=== PATIENT | female | born 1990 | race Hispanic/Latino ===

== ENCOUNTER 2017-08-01 04:34 | Emergency (ER) | payer OTHER ==
[2017-08-01] MEDS ORDERED: Sodium Chloride 0.9% 1,000 ML IV STA ×2 (04:54→06:38)
--- NOTE | 2017-08-01 04:58 | ED PDOC ---
HPI: Abdomen History Per: Patient History/Exam Limitations: no limitations Onset/Duration Of Symptoms: Hrs Outside of [place] travel?: No Current Symptoms Are (Timing): Still Present Context: Food Location Of Pain/Discomfort: Epigastric, Suprapubic Quality Of Discomfort: Cramping Associated Symptoms: Nausea, Vomiting. denies: Fever, Chills, Diarrhea Additional Complaint(s): No PMHx presenting with nausea and vomiting since 7PM yesterday, patient states that day old blueberries may have been causative agent, states she's vomited "handful of times" without blood or bile, no abnormal BM's, no fevers. States she's having cramping in abdomen radiating from suprapubic region to epigastrium. States she feels thirsty. No recent travel, sick contacts, abdominal surgeries, or recent ABx usage. Past Medical History Reviewed: Historical Data, Nursing Documentation, Vital Signs Vital Signs: Last Vital Signs Temp 98.4 F 08/01/17 04:41 Pulse 111 H 08/01/17 06:25 Resp 18 08/01/17 06:25 BP 116/81 08/01/17 04:41 Pulse Ox 99 08/01/17 06:25 - Medical History PMH: Depression - Surgical History Surgical History: No Surg Hx - Family History Family History: States: Unknown Family Hx - Home Medications Home Medications: Ambulatory Orders Medication Instructions Recorded No Known Home Med 04/11/16 - Allergies Allergies/Adverse Reactions: Allergies Allergy/AdvReac Type Severity Reaction Status Date / Time metoclopramide HCl AdvReac FEVER Verified 04/11/16 01:49 [From [facility]] Review of Systems ROS Statement: Except As Marked, All Systems Reviewed And Found Negative Gastrointestinal: Positive for: Nausea, Vomiting, Abdominal Pain. Negative for : Diarrhea Physical Exam - Reviewed Nursing Documentation Reviewed: Yes Vital Signs Reviewed: Yes - Physical Exam Appears: Positive for: Well, Non-toxic, No Acute Distress Head Exam: Positive for: ATRAUMATIC, NORMAL INSPECTION, NORMOCEPHALIC Skin: Positive for: Normal Color, Warm, DRY Eye Exam: Positive for: EOMI, Normal appearance, PERRL ENT: Positive for: Normal ENT Inspection Neck: Positive for: Normal, Painless ROM Cardiovascular/Chest: Positive for: Regular Rate, Rhythm Respiratory: Positive for: CNT, Normal Breath Sounds Gastrointestinal/Abdominal: Positive for: Normal Exam, Bowel Sounds, Soft, Tenderness (mild tenderness in suprapubic and epigastric regions, no RLQ tenderness). Negative for: Organomegaly, Mass, Distended, Guarding, Rebound Back: Positive for: Normal Inspection Extremity: Positive for: Normal ROM Neurologic/Psych: Positive for: Alert, Oriented - Laboratory Results Result Diagrams: 08/01/17 05:00 08/01/17 05:00 - ECG O2 Sat by Pulse Oximetry: 97 Pulse Ox Interpretation: Normal Medical Decision Making Medical Decision MakinAM A/P: No PMHx presenting with nausea, vomiting, abdominal pain -presentation is consistent with viral gastroenteritis -very unlikely appendicitis, colitis, diverticulitis based on exam and history -likely dehyrated, will give 1LNS -pepcid for pain relief -will check labs and re-eval after workup 7AM -Patient still tachycardic, 2nd liter of fluid ordered -Patient still complaining of suprapubic pain, now with headache, toradol ordered -Will endorse to Dr. Nunes pending re-eval, if patient still having pain, will advise CT A/P Disposition - Clinical Impression Clinical Impression: Abdominal pain in female - Disposition Disposition: Transfer of Care Disposition Time: 07:00 Condition: STABLE Patient Signed Over To: Constantin Nunes Handoff Comments: pending re-eval for possible CT
[2017-08-01 05:23] LABS: BASO % 0.2 % (0.0-2.0); EOS % 0.8 % (0.0-4.0); HEMOGLOBIN 13.4 g/dL (12.0-16.0); LYMPH # 0.4 K/uL (1.0-4.3); LYMPH % 8.6 % (20.0-40.0); MEAN CELL VOLUME 86.3 fl (81.0-99.0); MEAN CORPUSCULAR HEMOGLOBIN 29.5 pg (27.0-31.0); MEAN CORPUSCULAR HGB CONC 34.2 g/dL (33.0-37.0); MONO # 0.3 K/uL (0.0-0.8); MONO % 6.1 % (0.0-10.0); NEUT % 84.3 % (50.0-75.0); NRBC % 0.1 % (0.0-0.0); PLATELET COUNT 174 K/uL (130-400); RBC 4.56 Mil/uL (3.80-5.20); RED CELL DISTRIBUTION WIDTH 12.9 % (11.5-14.5); WHITE BLOOD COUNT 4.7 K/uL (4.8-10.8)
[2017-08-01 05:52] LABS: ALB/GLOB RATIO 1.4 (1.0-2.1); ALBUMIN 4.1 g/dL (3.5-5.0); ALT/SGPT 36 U/L (9-52); AST/SGOT 31 U/L (14-36); BLOOD UREA NITROGEN 16 mg/dl (7-17); CALCIUM 9.3 mg/dL (8.4-10.2); GFR AFRICAN-AMERICAN > 60; GFR NON-AFRICAN AMERICAN > 60
--- NOTE | 2017-08-01 06:59 | ED PDOC ---
- Laboratory Results Result Diagrams: 08/01/17 05:00 08/01/17 05:00 - ECG O2 Sat by Pulse Oximetry: 97 (RA) Pulse Ox Interpretation: Normal - Progress ED Course And Treament: Pt reports mild nausea and headache. On physical exam, (+) mild tenderness LUQ. Work up with Transvaginal Ultrasound to r/o cyst. Re-evaluation Time: :46 Condition: Re-examined, Improved Medical Decision Making Medical Decision Making: Patient signed out to me by Dr. Olea @ 07:00, pending re-evaluation for possible CT A/P. Declines CT abd would rather have US Time: 08:13 Transvaginal Ultrasound 09:30 As per RN, Pt reports she has a headache and feels nauseous Scribe Attestation: Documented by Varun Mazariegos, acting as a scribe for Constantin Nunes MD Provider Scribe Attestation: All medical record entries made by the Scribe were at my direction and personally dictated by me. I have reviewed the chart and agree that the record accurately reflects my personal performance of the history, physical exam, medical decision making, and the department course for this patient. I have also personally directed, reviewed, and agree with the discharge instructions and disposition. Disposition - Clinical Impression Clinical Impression: Abdominal pain in female, Ovarian cyst - POA Present On Arrival: None - Disposition [facility] Disposition: Routine/Home Disposition Time: :46 Condition: FAIR Prescriptions: Naproxen [Naprosyn] 500 mg PO Q12H #20 tab Ondansetron [Zofran] 4 mg PO Q8H #10 tab Instructions: Ovarian Cysts Forms: [employer] (Turkish)
[2017-08-01 07:54] LABS: BANDS 3 % (0-2); BASOPHIL 1 % (0-2); LYMPHOCYTE 8 % (20-50); MONOCYTE 5 % (0-10); NEUTROPHIL 83 % (42-75); PLATELET ESTIMATE NORMAL (NORMAL); TOTAL CELLS COUNTED 100
[2017-08-01] MEDS ORDERED: Naproxen 500 MG TAB PO STA (10:17)
[2017-08-01] MEDS ORDERED: Naproxen 500 MG TAB PO ONE (10:19)
--- NOTE | 2017-08-01 10:25 | US ---
HISTORY: LLQ pain h/o cyst COMPARISON: Abdomen and pelvis CT with contrast 04/11/2016. TECHNIQUE: Transvaginal pelvic ultrasound was performed with longitudinal and transverse images submitted for interpretation. FINDINGS: UTERUS: Measures 8.0 x 5.1 x 4.0 cm. Normal in size and appearance. No fibroid or other mass lesion seen. ENDOMETRIUM: Measures 14.0 mm in diameter. Trilaminar sonographic appearance without focal fluid collection or mass appreciable grossly. CERVIX: No cervical abnormality identified. RIGHT OVARY: Measures 4.5 x 2.7 x 3.5 cm. No solid mass. Normal flow. A 2.9 x 1.8 x 2.5 cm simple cysts identified representing persistent or recurrent right adnexal cyst. LEFT OVARY: Measures 3.4 x 2.8 x 1.9 cm. No solid mass. Normal flow. FREE FLUID: No significant free fluid noted. OTHER FINDINGS: None. IMPRESSION: 2.9 cm simple cyst right ovary as a recurrent or chronic feature as compared prior CT 04/11/2016 as noted above. The remainder the examination is unremarkable. No ultrasound evidence of ovarian torsion bilaterally.
[2017-08-01] MEDS ORDERED: Iohexol 300 100 ML IJ ONE (10:50)
[2017-08-01] MEDS ORDERED: Sodium Chloride 0.9% 100 ML ONE (10:51)
--- NOTE | 2017-08-01 11:35 | CT ---
PROCEDURE: CT Abdomen and Pelvis with contrast HISTORY: abd pain COMPARISON: Contrast abdomen pelvis CT examination 04/11/2016. TECHNIQUE: Contrast dose: Omnipaque 300, 100 cc. Radiation dose: Total exam DLP = 373.94 mGy-cm. This CT exam was performed using one or more of the following dose reduction techniques: Automated exposure control, adjustment of the mA and/or kV according to patient size, and/or use of iterative reconstruction technique. FINDINGS: LOWER THORAX: Unremarkable. LIVER: Unremarkable. No gross lesion or ductal dilatation. GALLBLADDER AND BILE DUCTS: Unremarkable. PANCREAS: Unremarkable. No gross lesion or ductal dilatation. SPLEEN: Unremarkable. ADRENALS: Unremarkable. No mass. KIDNEYS AND URETERS: Unremarkable. No hydronephrosis. No solid mass. VASCULATURE: Unremarkable. No aortic aneurysm. BOWEL: Unremarkable. No obstruction. No gross mural thickening. APPENDIX: Unable to identify the appendix in this patient with barely any intraperitoneal fat. PERITONEUM: Unremarkable. No free fluid. No free air. LYMPH NODES: Unremarkable. No enlarged lymph nodes. BLADDER: Unremarkable. REPRODUCTIVE: Unremarkable. BONES: No acute fracture. OTHER FINDINGS: None. IMPRESSION: No definitive acute abdominal or pelvic findings by standard CT criteria. Lack oral contrast limits evaluation the bowel with the appendix not identified. Lack of intraperitoneal fat limits evaluation as well. Further clinical correlation is recommended. No significant interval change or prior abdomen pelvis CT with contrast 08/01/2017.
[2017-08-01 12:27] VITALS: BP 110/70; PULSE 76; RESP 20; TEMP 98; O2SAT 98
== END 2017-08-01 12:27 | disposition home or self-care (01) ==
LOC: H.ER 04:34
DX: N83.202 Unspecified ovarian cyst, left side (principal); F32.9 Major depressive disorder, single episode, unspecified
CPT/HCPCS: 74177; 76830; 80048; 80076; 81025; 85025; 96361; 96374; 96375; 99284; J1885; J2405; J7040; Q9967